=== PATIENT | female | born 1975 | race Caucasian/White ===

== ENCOUNTER 2021-07-22 20:15 | Emergency (ER) | payer SELFPAY ==
[2021-07-22] MEDS ORDERED: SUMAtriptan SUCC 6 MG/0.5 ML VIAL. SQ ONE ×2 (21:48→22:30)
[2021-07-22] MEDS ORDERED: diphenhydrAMINE 50 MG/ML VIAL IV ONE (21:48)
[2021-07-22] MEDS ORDERED: DEXAMETHASONE SOD PHOS 20 MG/5 ML VIAL. IVP ONE (21:48)
[2021-07-22] MEDS ORDERED: PROCHLORPERAZINE 10 MG/2 ML VIAL. IV ONE (21:48)
--- NOTE | 2021-07-22 22:27 | PHYS DOC ---
General Adult HPI: HPI: Patient is a 46 year old female who presents with the worst headache of her life and last week. It is all frontal. States some light sensitivity and some nausea. She states she has had migraines in the past and was given Fioricet. She currently does not have any for sleep. She has been taking ibuprofen for t he pain but is not helping. She also complains of a left behind the ear bump that is tender for the last week. She states she is unable to get into a primary care provider. Her pain a 10 out of 10. Denies vomiting, syncope, dizziness, abdominal pain, urinary symptoms, back pain, neck pain, chest pain, shortness of air, rash, fever, numbness or tingling or focal weakness. Review of Systems: Review of Systems: Constitutional: Denies fever or chills. [] Eyes: Denies change in visual acuity. [] HENT: Denies nasal congestion or sore throat. [] Respiratory: Denies cough or shortness of breath. [] Cardiovascular: Denies chest pain or edema. [] GI: Denies abdominal pain, +nausea, denies vomiting, bloody stools or diarrhea. [] : Denies dysuria. [] Musculoskeletal: Denies back pain or joint pain. [] Integument: Denies rash. +Small abscess to back of left ear [] Neurologic: +headache, denies focal weakness or sensory changes. [] Endocrine: Denies polyuria or polydipsia. [] Lymphatic: Denies swollen glands. [] Psychiatric: Denies depression or anxiety. [] Heart Score: C/O Chest Pain: No Physical Exam: PE: Constitutional: Well developed, well nourished, no acute distress, non-toxic appearance. [] HENT: Normocephalic, atraumatic, bilateral external ears normal, oropharynx moist, no oral exudates, nose normal. [] Eyes: PERRLA, EOMI, conjunctiva normal, no discharge. [] Neck: Normal range of motion, no tenderness, supple, no stridor. [] Cardiovascular:Heart rate regular rhythm, no murmur [] Lungs & Thorax: Bilateral breath sounds clear to auscultation [] Abdomen: Bowel sounds normal, soft, no tenderness, no masses, no pulsatile masses. [] Skin: Warm, dry, no erythema, no rash. Small hard bump behind the left ear. Slight redness but is tender. [] Back: No tenderness, no CVA tenderness. [] Extremities: No tenderness, no cyanosis, no clubbing, ROM intact, no edema. [] Neurologic: Alert and oriented X 3, normal motor function, normal sensory function, no focal deficits noted. [] Psychologic: Affect normal, judgement normal, mood normal. [] EKG: EKG: [] Radiology/Procedures: Radiology/Procedures: [] Impression: SEE PAPER CHART Course & Med Decision Making: Course & Med Decision Making Pertinent Labs and Imaging studies reviewed. (See chart for details) See HPI. Alert and oriented x4. Ambulatory with steady gait. Speaks in full clear sentences. PERRLA. Left behind the ear small hard tender bump. No drainage. No signs of cellulitis. No CVA tenderness. Full range of motion and no weakness to any extremities. Afebrile. Vital signs within normal. Patient is given Compazine, sumatriptan, Decadron, Benadryl. Is feeling much better after medications given. Will be discharged home with Keflex and Fioricet. [] Dragon Disclaimer: [employer] Disclaimer: This electronic medical record was generated, in whole or in part, using a voice recognition dictation system. Departure Departure Impression: Primary Impression: Migraine Qualified Codes: G43.909 - Migraine, unspecified, not intractable, without status migrainosus Additional Impression: Abscess Disposition: 01 HOME / SELF CARE / HOMELESS Condition: STABLE Referrals: NO PCP (PCP) Patient Instructions: Abscess, Migraine Headache Additional Instructions: Follow-up with your primary care provider soon as possible. Take medication as prescribed and with food. Drink plenty of fluids to stay hydrated. If you begin having a severe headache, dizziness, syncope, focal weakness on one side your body numbness and tingling you return to the emergency room. Scripts Cephalexin (KEFLEX) 500 Mg Capsule 1 CAP PO TID, #30 CAP Prov: TERESA GAN APRN 07/23/21 Butalb/Acetaminophen/Caffeine ([id number] [id number]) 1 Each Tablet 1 EACH PO Q4HRS PRN for MIGRAINE HEADACHE, #20 TAB Prov: TERESA GAN APRN 07/23/21 TERESA GAN APRN Jul 22, 2021 22:27
[2021-07-22] MEDS ORDERED: diphenhydrAMINE 50 MG/ML VIAL ONE (22:30)
[2021-07-22] MEDS ORDERED: DEXAMETHASONE SOD PHOS 20 MG/5 ML VIAL. ONE (22:30)
[2021-07-22] MEDS ORDERED: PROCHLORPERAZINE 10 MG/2 ML VIAL. ONE (22:30)
[2021-07-23] MEDS ORDERED: BUTA1TAB23 PO (00:12)
[2021-07-23] MEDS ORDERED: CEPH500C PO (00:12)
--- NOTE | 2021-07-23 03:44 | RAD ---
STUDY: CT head without contrast INDICATION: Severe headache. COMPARISON: None. TECHNIQUE: Axial CT imaging through the head without the use of intravenous contrast. Sagittal and co harriet reformats were obtained. One or more of the following individualized dose reduction techniques were utilized for this examinat ion: 1. Automated exposure control 2. Adjustment of the mA and/or kV according to patient size 3. Use of iterative reconstruction technique. FINDINGS: No acute intracranial hemorrhage. No mass effect, midline shift or hydrocephalus. Childs-white matter d ifferentiation is maintained. Intact calvarium. No layering fluid seen within the visualized paranasal sinuses. Well aerated mastoi d air cells and middle ears. IMPRESSION: Unremarkable head CT. No acute intracranial hemorrhage. Electronically signed by: LEONARDO ENGLISH MD (07/22/2021 11:16 PM) [facility] [place]
== END 2021-07-23 00:20 | disposition home or self-care (01) ==
LOC: ER 20:15
DX: G43.909 Migraine, unspecified, not intractable, without status migrainosus (principal); H66.42 Suppurative otitis media, unspecified, left ear
CPT/HCPCS: 70450; 99283; 99284-25